=== PATIENT | female | born 1960 | race African-American/Black ===

== ENCOUNTER 2019-03-22 17:25 | Emergency (ER) | payer OTHER ==
[~2019-03-22] VITALS: Ht 160 cm; Wt 54.5 kg
[2019-03-22 17:26] VITALS: BP 105/68
== END 2019-03-22 19:18 | disposition home or self-care (01) ==
LOC: EMS 17:27
DX: S61.210A Laceration without foreign body of right index finger without damage to nail, initial encounter (principal); W26.0XXA Contact with knife, initial encounter; Y93.89 Activity, other specified; Y92.89 Other specified places as the place of occurrence of the external cause; Y99.8 Other external cause status